=== PATIENT | male | born 2000 | race Asian ===

== ENCOUNTER 2021-08-14 20:57 | Emergency (ER) | payer BC, MEDICAID ==
[~2021-08-14] VITALS: Ht 172.7 cm; Wt 77.6 kg
[2021-08-14 21:13] VITALS: BP_SYST 134
[2021-08-14] MEDS ORDERED: NACL 0.9% 1,000 ML IV ONE (22:00)
[2021-08-14 22:21] LABS: BASOPHILS % (AUTO) 0.3 % (0.0-2.0); EOSINOPHILS % (AUTO) 0.2 % (0.0-4.0); HEMATOCRIT 45.1 % (36-54); HEMOGLOBIN 15.1 g/dL (14.0-18.0); LYMPHOCYTES % (AUTO) 10.3 % (20.5-51.5); MEAN CORPUSCULAR HEMOGLOBIN 29 pg (27-31); MEAN CORPUSCULAR HGB CONC 34 % (32-36); MEAN CORPUSCULAR VOLUME 86 fL (79.0-98.0); MONOCYTES # (AUTO) 0.7 K/uL (0.0-1.0); MONOCYTES % (AUTO) 7.4 % (1.7-9.3); NEUTROPHILS # (AUTO) 7.6 K/uL (1.8-7.7); NEUTROPHILS % (AUTO) 81.8 % (40.0-70.0); PLATELET COUNT (AUTO) 217 K/uL (130-430); RED BLOOD CELL COUNT(AUTO) 5.25 MIL/uL (4.2-6.2); RED CELL DISTRIBUTION WIDTH 13.3 % (9.0-15.0); WHITE BLOOD COUNT (AUTO) 9.3 K/uL (4.8-10.8)
[2021-08-14] MEDS ORDERED: LACOSAMIDE 100 MG TABLET PO ONE (22:30)
[2021-08-14 22:34] LABS: CALCIUM 9.5 mg/dL (8.4-11.0); CREATININE 0.86 mg/dL (0.55-1.30); POTASSIUM 4.2 mmol/L (3.5-5.1)
[2021-08-14 22:39] LABS: ALBUMIN 4.2 g/dL (3.4-4.8); TOTAL BILIRUBIN 0.1 mg/dL (0.0-1.0)
[2021-08-14] MEDS ORDERED: IBUP-1969 PO (23:32)
[2021-08-15 00:07] VITALS: BP_SYST 112
== END 2021-08-15 00:08 | disposition home or self-care (01) ==
LOC: SED 20:57
DX: R56.9 Unspecified convulsions (principal)
CPT/HCPCS: 36415; 70450; 76376; 80053; 85025; 96360; 99284; J7030